=== PATIENT | male | born 1975 | race Caucasian/White ===

== ENCOUNTER 2018-09-18 09:43 | Inpatient (IN) | payer BC ==
[2018-09-18] VITALS (8 sets, daily range): BP systolic 106–159; BP diastolic 58–109
[~2018-09-18] VITALS: Ht 172.7 cm; Wt 86.3 kg
--- NOTE | ~2018-09-18 | EKG ---
[place], [place] ELECTROCARDIOGRAM REPORT NAME: EUGENE BENSON UNIT #: [id number] ROOM: [facility] DOCTOR: DANIEL DRAFT REPORT BIRTHDATE: [birth year] [facility] Test Date: 2018-09-18 Test Time: 13:41:04 Pat Name: EUGENE BENSON Department: Room: [facility] Gender: M Resistor Coater: Tawny Singh : 1975 Requested By: JESSE VENEGAS Order Number: [id number] Reading MD: Canelo Sharma MD Measurements Intervals [place] Rate: 66 P: 53 DE: 139 QRS: 32 QRSD: 93 T: 87 QT: 354 QTc: 371 Interpretive Statements Sinus rhythm Probable left atrial enlargement RSR' in V1 or V2, right VCD or RVH Borderline T abnormalities, lateral leads Minimal ST elevation, inferior leads No previous ECG available for comparison Electronically Signed On 09-22-2018 12:03:52 PDT by Canelo Sharma MD CM:EKGRPT:ELECTROCARDIOGRAM REPORT 1341 1203 JESSE SANCHEZ DRAFT REPORT JESSE VENEGAS MD
--- NOTE | ~2018-09-18 | EKG ---
[place], [place] ELECTROCARDIOGRAM REPORT NAME: EUGENE BENSON UNIT #: [id number] ROOM: [facility] DOCTOR: DANIEL DRAFT REPORT BIRTHDATE: [birth year] [facility] Test Date: 2018-09-18 Test Time: 09:46:27 Pat Name: EUGENE BENSON Department: Room: [facility] Gender: M Primary Products Inspectors: : 1975 Requested By: JESSE VENEGAS Order Number: [id number] Reading MD: Canelo Sharma MD Measurements Intervals [place] Rate: 70 P: 27 WV: 144 QRS: 21 QRSD: 87 T: 63 QT: 347 QTc: 375 Interpretive Statements Sinus rhythm RSR' in V1 or V2, right VCD or RVH No previous ECG available for comparison Electronically Signed On 09-22-2018 12:01:56 PDT by Canelo Sharma MD CM:EKGRPT:ELECTROCARDIOGRAM REPORT [id number] 1201 JESSE SANCHEZ DRAFT REPORT JESSE VENEGAS MD
--- NOTE | ~2018-09-18 | EKG ---
[place], [place] ELECTROCARDIOGRAM REPORT NAME: EUGENE BENSON UNIT #: [id number] ROOM: [facility] DOCTOR: DANIEL DRAFT REPORT BIRTHDATE: [birth year] [facility] Test Date: 2018-09-18 Test Time: 10:21:59 Pat Name: EUGENE BENSON Department: Room: [facility] Gender: M Jewelry Sales Representative: Tawny Singh : 1975 Requested By: JESSE VENEGAS Order Number: [id number] Reading MD: Canelo Sharam MD Measurements Intervals [place] Rate: 70 P: 31 DC: 141 QRS: 40 QRSD: 84 T: 82 QT: 338 QTc: 365 Interpretive Statements Sinus rhythm RSR' in V1 or V2, right VCD or RVH ST elev, probable normal early repol pattern Baseline wander in lead(s) II,III,aVF,V4 No previous ECG available for comparison Electronically Signed On 09-22-2018 12:02:06 PDT by Canelo Sharma MD CM:EKGRPT:ELECTROCARDIOGRAM REPORT 1021 1202 JESSE SANCHEZ DRAFT REPORT JESSE VENEGAS MD
[2018-09-18] MEDS ORDERED: LISINOPRIL20 MG PO (09:48)
[2018-09-18 10:07] LABS: ACT PARTIAL THROMBO TIME 24.8 SECONDS (20.8-31.5); INTERNATIONAL NORM RATIO 0.9 (2.0-3.5)
[2018-09-18 10:09] LABS: BASO # 0.1 10*3/uL (0.0-0.1); BASO % 0.8 % (0.0-1.0); EOS # 0.3 10*3/uL (0.0-0.4); EOS % 4.2 % (1.0-4.0); HEMOGLOBIN 15.3 g/dl (14.0-18.0); LYMPH # 2.6 10*3/uL (1.3-4.4); LYMPH % 41.6 % (27.0-41.0); MEAN CELL VOLUME 84.6 fl (80.0-94.0); MEAN CORPUSCULAR HGB 29.4 pg (27.0-31.0); MEAN CORPUSCULAR HGB CONC 34.8 g/dl (33.0-37.0); MEAN PLATELET VOLUME 9.7 fl (9.6-12.3); MONO # 0.5 10*3/uL (0.1-1.0); MONO % 7.5 % (3.0-9.0); NEUT # 2.8 10*3/uL (2.3-7.9); NEUT % 45.4 % (47.0-73.0); PLATELET COUNT AUTOMATED 181 10*3/uL (130-400); WHITE BLOOD COUNT 6.2 10*3/uL (4.8-10.8)
[2018-09-18 10:18] LABS: ALBUMIN 4.1 gm/dl (3.1-4.5); ALKALINE PHOSPHATASE 58 U/L (45-117); BUN 13 mg/dl (7-24); CHLORIDE 106 mmol/L (98-107); CREATININE 1.13 mg/dL (0.70-1.30); POTASSIUM 3.7 mmol/L (3.5-5.1); SGOT/AST 33 IU/L (3-35); SGPT/ALT 75 U/L (12-78); SODIUM 138 mmol/L (136-145); TOTAL PROTEIN 7.7 gm/dL (6.4-8.2)
[2018-09-18 10:19] LABS: TROPONIN I < 0.015 ng/ml (<0.045)
== END 2018-09-18 14:25 | disposition short-term general hospital (02) | DRG 282 ==
LOC: ED 09:43 → EDHOLD 10:10 → 4E 10:10 → ICCU 13:28
PROVIDERS: Emergency Medicine
DX: I21.4 Non-ST elevation (NSTEMI) myocardial infarction (principal); R73.9 Hyperglycemia, unspecified; I95.9 Hypotension, unspecified; I10 Essential (primary) hypertension; E78.00 Pure hypercholesterolemia, unspecified; Z82.49 Family history of ischemic heart disease and other diseases of the circulatory system; Z91.041 Radiographic dye allergy status; Z79.899 Other long term (current) drug therapy